=== PATIENT | female | born 1975 | race African-American/Black ===

== ENCOUNTER 2018-10-01 11:48 | Emergency (ER) | payer MEDICAID ==
[~2018-10-01] VITALS: Ht 170.2 cm; Wt 55.3 kg
[2018-10-01 12:05] VITALS: BP 124/64
== END 2018-10-01 13:05 | disposition left against medical advice (07) ==
LOC: ER 11:48
DX: F19.10 Other psychoactive substance abuse, uncomplicated (principal); R44.0 Auditory hallucinations; F41.9 Anxiety disorder, unspecified; I10 Essential (primary) hypertension; F17.210 Nicotine dependence, cigarettes, uncomplicated